=== PATIENT | male | born 1980 | race Caucasian/White ===

== ENCOUNTER 2021-12-09 01:31 | Day surgery (SDC) | payer OTHER, SELFPAY ==
[2021-12-03 11:53] VITALS: BMI 29.7
--- NOTE | 2021-12-03 12:07 | PC.NURSE ---
Report to the Outpatient Waiting Room, entrance under the green pavilion located off [facility], at time 1000 on date 12/09/21. OR Time: 1200. - You and your visitor will be asked a series of questions to screen for COVID 19 for your protection. - A mask is required within the hospital. One visitor will be allowed to accompany the patient into the hospital. Patients visitor will be instructed to remain with patient at all times or leave the building. We will allow the visitor to come back to the postoperative area when patient is ready. Preoperative COVID Testing Requirements: No COVID Test needed if: (proof is required; if not received patient will have Rapid Test prior to entry) - Patient has received COVID Vaccine at least 14 days prior to procedure date or - Patient has positive COVID test result within last 90 days of surgery date. COVID Test needed if above criteria is not met Patients may have clear liquids (water, carbonated beverages, clear teas, apple juice) until 3 hours prior to surgery with a maximum of 20 ounces. - No food from midnight until time of surgery Take the following medications with a SIP of water the morning of surgery: DOXYCYCLINE Medications to discontinue per physician: VITAMINS/SUPPLEMENTS Date to take last dose: 12/05/21 Please no make-up, nail chadian, hairspray, perfume, deodorant, or body powder the day of surgery. No jewelry (including any body piercings) or valuables the day of surgery, leave them at home. Please take a shower or bath the night before, or the morning of, surgery with an antibacterial soap. Wear comfortable, loose fitting clothing. HIBICLENS SHOWER - Jewelry must be removed prior to entering the operating room. Rings and piercings that are not removed may be cut off. - The hospital will not accept responsibility for valuables. - Please leave all valuables, including medications, at home the day of surgery. If you are going home after surgery, a licensed local combination truck driver must drive you home. - NO public transportation without another adult. - We recommend that an adult stay with you for 24 hours following discharge. - We also recommend that you do not drive, make important decision, drink alcoholic beverages, or take any drugs that were not prescribed by your health care provider for at least 24 hours after your discharge time. Follow any additional instructions given to you from your surgeon. Telephone instructions given to EFRAIN ROBLERO and asked if any additional questions and then verbalized understanding. Patient advised to call surgeon office or pre surgery nurse liaison [phone] if any additional questions.
--- NOTE | 2021-12-08 18:16 | PM.HPGS ---
History of Present Illness History of Present Illness Consent: Risks, benefits, and alternatives of a a laparoscopic (TEP) Left inguinal hernia repair, possible open have been discussed and questions answered. Patient agrees to proceed with procedure. Chief complaint: left inguinal hernia Narrative: Cody Marti is a 41 year old male who recent.y presented to the office at the request of Franny Young NP for an evaluation of an possible left inguinal hernia. Patient had an ultrasound of the groin that showed a left inguinal hernia with a possible loop of small bowel in the hernia sac. Subsequently patient had a CT scan of the pelvis with contrast on 09/09/20 that showed a fat containing left inguinal hernia and no bowel in it. Patient reports that he first noticed a bulge in the left groin area in June of 2021. He reports that he is not sure how long it had been there priorto that but it realy had not bothered him if it was present. He had recently lost some weight on purpose so he thinks it may have been present for some time ,but just not noticble to him until he lost the weight. He was 280 lbs in 09/2020. He reports that the hernia just occasionally bothers him, especially when like leaning up on or aganinst a counter or when urinating. 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 Review of Systems Constitutional: Constitutional: Reports no additional constitutional complaints, Denies malaise and Reports weight loss (On purpose to improve health) Eyes: Eyes: Denies change in vision and Denies loss of vision ENT: Reports Normal hearing present, Denies change in voice, Denies dizziness, Denies hoarseness and Denies sore throat Cardiovascular: Cardiovascular: Denies chest pain, Denies leg edema and Denies dyspnea Respiratory: Respiratory: Denies cough, Denies dyspnea and Denies wheezing Gastrointestinal: Gastrointestinal: Denies hematochezia, Denies change in bowel habits and Denies heartburn Genitourinary: Genitourinary: Denies urinary frequency and Denies urinary incontinence Comments: Hx of erectile disfunction Neurologic: Reports Normal hearing present, Denies confusion, Denies dizziness, Denies loss of vision, Denies memory loss and Denies seizure-like activity Psychiatric: Psychiatric: Denies confusion, Denies depression and Denies memory loss Endocrine: Endocrine: Denies cold intolerance and Reports fatigue Hematologic/Lymphatic: Hematologic/Lymphatic: Denies easy bleeding and Denies easy bruising Allergic/Immunologic: Allergic/Immunologic: Denies wheezing PMFSH Past Medical History Medical History Abnormal ultrasound BMI 31.0-31.9,adult Dysuria Encounter to establish care Erectile dysfunction History of tobacco abuse Hypertension Low testosterone Lump in the groin Surgical History Surgical History No history of previous surgery Family History Family History Father Hypertension Mother Hypertension Grandparent Alcoholism Cancer Grandparent Cancer Social History Social History Years smoked: 15 Smoking status: Former smoker Tobacco type: cigarettes Smoking end date: 11/24/21 Alcohol intake: current Drinks per week: 12 Alcohol use details: beer Substance use: never Substance use type: does not use Living arrangements: alone Spiritual care concerns: No Meds Home Medications and Allergies Home Medications Medication Instructions Recorded Confirmed Type ascorbic acid (vitamin C) 1,000 mg 1 g PO DAILY 07/09/21 12/09/21 History tablet garlic 1,000 mg capsule 1,000 mg PO DAILY 07/09/21 12/09/21 History lisinopril 10 mg tablet 10 mg
[2021-12-09] VITALS (8 sets, daily range): BP systolic 121–146; BP diastolic 65–85; PULSE 61–92; RESP 12–16; TEMP 36.2–36.5; O2SAT 94–100
[2021-12-09] MEDS: ACETAMINOPHEN 500 MG TABLET 1000 MG PO (10:25)
--- NOTE | 2021-12-09 10:33 | ECG_ITS ---
Measurements Intervals [place] Rate: 55 P: 24 WY: 162 QRS: 35 QRSD: 106 T: 39 QT: 395 QTc: 379 Interpretive Statements SINUS BRADYCARDIA Electronically Signed On 12-09-2021 15:51:41 CDT by Sarbjit Rodriguez M.D.
--- NOTE | 2021-12-09 10:34 | WPDANESEPPF ---
Anes - Initial Pre Proc Eval Procedure: Operation Date: 12/09/21 12:00 Proposed Procedures p Laparoscopic Left Inguinal Hernia Repair with Mesh - Chadd Chung MD Date/Time: 12/09/21 10:34 Surgeon: Chadd Chung MD Pre Op Diagnosis: left inguinal hernia Patient Data Age: 41 Gender: M Height: 1.88 m Weight: 102.8 kg Allergies Allergy/AdvReac Type Severity Reaction Status Date / Time No Known Allergies Allergy Verified 12/09/21 10:19 Home Medications Medication Instructions Recorded Confirmed Type ascorbic acid (vitamin C) 1,000 mg 1 g PO DAILY 07/09/21 12/09/21 History tablet garlic 1,000 mg capsule 1,000 mg PO DAILY 07/09/21 12/09/21 History lisinopril 10 mg tablet 10 mg PO DAILY #30 tablet 07/09/21 12/09/21 Rx testosterone cypionate 200 mg/mL 200 mg IM WEEKLY ml 07/09/21 12/09/21 History intramuscular oil doxycycline hyclate 100 mg PO DAILY 12/03/21 12/09/21 History sildenafil [Viagra] 50 mg PO DAILY PRN 12/03/21 12/03/21 History vitamin E 600 unit PO DAILY 12/03/21 12/09/21 History Patient hx anesthesia problems: none Family hx anesthesia problems: none Results Review: All pre-operative results and documents have been reviewed as part of the pre-operative evaluation. FOR[facility] Past Medical History Medical History Abnormal ultrasound BMI 31.0-31.9,adult Dysuria Encounter to establish care Erectile dysfunction History of tobacco abuse Hypertension Low testosterone Lump in the groin Surgical History Surgical History No history of previous surgery Family History Family History Father Hypertension Mother Hypertension Grandparent Alcoholism Cancer Grandparent Cancer Social History Social History Years smoked: 15 Smoking status: Former smoker Tobacco type: cigarettes Smoking end date: 11/24/21 Alcohol intake: current Drinks per week: 12 Alcohol use details: beer Substance use: never Substance use type: does not use Living arrangements: alone Spiritual care concerns: No Anes - Eval Final PreProcedure Day of Procedure 12/09/21 10:34 Patient weight: overweight Heart: regular rate and rhythm Lungs: clear to auscultation and normal air movement Airway: Mallampati scale class II Neurological: alert and oriented Last oral intake: >/= 8 hours ASA classification: III Emergent: no Anesthetic plan: proceed Anesthesia type and monitoring: general ETT and standard monitoring Results Review: All pre-operative results and documents have been reviewed as part of the pre-operative evaluation. Informed Consent: The patient's anesthetic plan and its attendant risks and benefits were discussed with the patient/family/POA. Questions were solicited and answers provided to the satisfaction of the patient/family/POA.
[2021-12-09] MEDS: LACTATED RINGERS 1,000 ML 30 ML IV CONT ×3 (10:51→14:58)
[2021-12-09] MEDS: KETOROLAC 15 MG/ML VIAL (*BKC) IV PUSH (10:51)
[2021-12-09 10:59] LABS: Anion Gap 6 mmol/L (8-16); Blood Urea Nitrogen 15 mg/dL (9-20); Calcium 9.5 mg/dL (8.4-10.2); Carbon Dioxide 24 mmol/L (22-30); Chloride 108 mmol/L (98-107); Estimated CRCL calculation 123 ml/min; Estimated Glomerular Filt Rate > 60; Glucose 99 mg/dL (65-110); Potassium 4.2 mmol/L (3.4-5.0); Sodium 138 mmol/L (137-145)
[2021-12-09 11:01] LABS: Basophils Percent Auto 0.5 % (0.2-1.2); Eosinophils Absolute Auto 0.1 K/mm3 (0-0.3); Eosinophils Percent Auto 2.5 % (0-4.4); Hemoglobin 17.3 g/dL (14.0-18.0); Immature Granulocyte Absolute 0.02 K/mm3 (0.00-0.031); Immature Granulocyte Percent A 0.4 % (0-0.5); Lymphocytes Absolute Auto 0.95 K/mm3 (0.9-3.2); Lymphocytes Percent Auto 16.9 % (18.3-44.2); Mean Corpuscular HGB Conc 35.3 g/dl (32-36); Mean Corpuscular Volume 93.5 fl (80-100); Monocytes Absolute Auto 0.4 K/mm3 (0.1-0.6); Monocytes Percent Auto 7.8 % (2.6-8.5); Neutrophils Absolute Auto 4.1 K/mm3 (1.3-6.7); Neutrophils Percent Auto 71.9 % (45.5-73.1); Platelet Count Result 145 k/mm3 (150-375); Red Blood Count 5.24 M/mm3 (4.6-6.20); Red Cell Distribution Width 11.7 % (11.5-14.5); White Blood Count 5.6 K/mm3 (4.5-10.0)
--- NOTE | 2021-12-09 12:34 | WPDHPUPDATE1 ---
History and Physical Update Update Date/Time: 12/09/21 12:34 History and Physical has been reviewed, including an updated exam of the patient. There are NO changes in the patient's condition. Risks, benefits, and alternatives have been discussed and questions answered. Patient agrees to proceed with procedure.
[2021-12-09] MEDS: ceFAZolin 2 GM/D5W 50 ML 2 GM/50 ML BAG IVPB (12:42)
--- NOTE | 2021-12-09 14:41 | SUR.OPER ---
urine:200cc
--- NOTE | 2021-12-09 14:53 | W.PM.PROC2 ---
Procedure Note - Detailed Date of Procedure 12/09/21 Pre-op Diagnosis left inguinal hernia Post-op Diagnosis Other ( unilateral left Direct inguinal hernia) Procedure Performed 1. 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 No obvious femoral or indirect hernia. Description of Procedure After appropriate marking of the operative site prior to surgery, the patient was taken to the operating room. After induction of adequate general endotracheal anesthesia by [place] [facility] staff, a pulliam catheter was place and the patient was carefully prepped and draped in a sterile fashion. A time-out was performed confirming the procedure and site of surgery on the left. Following this, local anesthetic was infiltrated into the umbilical area and a vertical incision was made just below the umbilicus. I carefully dissected down to the the anterior rectus sheath on the left and then made a 1 cm vertical slit in the fascia just off the midline. The rectus muscle was retracted to left and then just in front of the posterior rectus sheath, a round shaped dissecting balloon was passed onto the pubic bone. After placing slight pressure on the right groin area, this was insufflated with 40 pumps, while watching with the 0 degree laparoscope. It appeared that I was in the proper plane. Following this, the dissecting balloon was removed and replaced by a Dougherty cannula with a circular 30 cc conforming balloon. Following this, the 0 degree laparoscope was used to carefully place two 5mm [employer] slim trocars, just to the right of midline. One suprapubic and other one fdc between the umbilicus and the pubic bone. Tedious dissection then occurred in the preperitoneal space exposing the Mamadou's ligament, the cord structures, the muscular tissue anteriorly, and the retroperitoneum. This was then able to be dissected back and we could visualize the posterior peritoneum. I then dissected up to the level of the umbilicus and it was ready for mesh placement. I also dissected a significant amount of lipoma out of a wide-mouth direct inguinal hernia defect which was situated medial to the epigastric vessels just to the left and anterior of Mamadou's ligament. After carefully confirming all sites and that the mesh would cover the direct space, I carefully rolled the Large Mid 3D Bard mesh and slid this through the 12 mm trocar at the umbilical level down into the preperitoneal space. This unfurled nicely and sat nicely against the left groin structures. It nicely covered all spaces and it went back nicely into the preperitoneal space along the anterior-superior iliac spine. I took a picture of it carefully, which showed that the mesh will cover the preperitoneal left groin well, and had come down to the posterior border of the peritoneum. I then first tacked the pseudosac to the anterior abdominal wall with 3 absorbable tacks. I then put 3 tacks through the mesh into Mamadou's ligament and two through the mesh into the anterior abdominal wall lateral to the epigastric vessels but anterior to the anterior superior iliac spine. Once this was accomplished, I took the patient out of Trendelenburg position, rotated the patient back even, and then observed using a dissector through the higher 5 mm trocar to keep the mesh pushed down against the anterior and posterior abdominal wall retroperitoneally. The peritoneum was then allowed to fall on to the mesh and it held the mesh nicely in place. I then carefully removed each of the 5 mm trocars under direct vision and compressed the CO2 gas out of the preperitoneal space, deflating the 30 cc round balloon and remov
== END 2021-12-09 16:40 | disposition home or self-care (01) ==
PROVIDERS: PCP Family Medicine; Visit Provider Surgery
PROC: (CPT 49650; principal; 2021-12-09 12:00)
DX: K40.90 Unilateral inguinal hernia, without obstruction or gangrene, not specified as recurrent (principal); I10 Essential (primary) hypertension; E29.9 Testicular dysfunction, unspecified; Z87.891 Personal history of nicotine dependence
CPT/HCPCS: 49650; 36415; 80048; 85025; 86850; 86900; 86901; 93005; A9270; C1781; J0330; J0690; J1100; J1885; J2250; J2405; J2704; J2710; J3010; J7030; J7120